=== PATIENT | female | born 1960 | race Caucasian/White ===

== ENCOUNTER 2019-08-28 07:42 | Outpatient (CLI) | payer OTHER, SELFPAY ==
--- NOTE | 2019-08-28 08:18 | XR_ITS ---
WS: [id number] Bone mineral density performed on a [employer], 08/28/2019 Clinical data: Status, asymptomatic POSTMENOPAUSAL Findings: The first 4 lumbar vertebral bodies demonstrated the bone mineral density of 1.204 g/cm2 for a young adult T score of 0.2. Measurement of the left hip reveals a bone mineral density of 1.117 g/cm2 with a young adult T score of 0.9. Measurement of the right hip reveals the bone mineral density of 1.111 g/cm2 for young adult T score of 0.8. XR/XR DEXA axial skeleton* [id number] Impression: Normal bone mineral density of the lumbar spine and both hips.
== END 2019-08-28 07:43 | disposition home or self-care (01) ==
PROVIDERS: Family Provider Internal Medicine; PCP Internal Medicine; Visit Provider Internal Medicine
DX: Z78.0 Asymptomatic menopausal state (principal)
CPT/HCPCS: 77080

== ENCOUNTER 2019-11-04 01:35 | Emergency (ER) | payer OTHER, SELFPAY ==
[2019-11-04 01:52] VITALS: BP 130/88; PULSE 75; RESP 18; TEMP 36.6; O2SAT 97; BMI 38.7
[2019-11-04 01:54] VITALS: BP 135/95; PULSE 79; RESP 16; O2SAT 96
--- NOTE | 2019-11-04 02:06 | W.ED.EAR ---
HPI - Ear Problem General: Chief complaint: Ear Stated complaint: foreign obj left ear Time Seen by Provider: 11/04/19 01:50 History of Present Illness: HPI Narrative: Patient had a bug fly into her left ear this evening. She try to get it out with tweezers and doused with alcohol was unable to retrieve it Complaint: foreign body Location: left ear Duration: constant Severity: mild Relieving factors: nothing Associated symptoms: Denies fever(s) or headache(s) Review of Systems Const: Denies: fever(s), chills or body aches Eyes: Denies: change in vision or blurry vision ENMT: Reports: other (Bug flew into the left ear); Denies: throat pain or nasal congestion Card: Reports: other (History of high blood pressure); Denies: chest pain or dyspnea on exertion Resp: Denies: dyspnea, productive cough or non-productive cough GI: Denies: abdominal pain, nausea or vomiting Musc: Denies: extremity pain Skin/Breast: Denies: rash Neuro: Denies: headache(s) Psych: Denies: anxiety or depression Jed/Lymph: Denies: easy bruising PFSH ED PFSH: Social History Smoking and tobacco status: never smoked Physical Exam Const: COMMON NORMALS: no acute distress HENMT: EXTERNAL AUDITORY CANAL: other (Small bug is present in the left ear canal next to the eardrum I flushed out with 30 cc of saline and got the bug out and tacked) Procedures FB Removal Ear Location: ear canal (L) Foreign Body Suspected: insect TM intact pre-procedure: yes If Insect Suspected: ear canal instilled with other (Saline) Foreign Body Removed: yes Foreign Body Removal Technique: irrigation Tympanic Membrane Intact Post Procedure: Yes Patient Tolerated Procedure: well Complications: none Course Vital Signs: Vital signs: Vital Signs Temperature 97.8 F 11/04/19 01:52 Pulse Rate 75 11/04/19 01:52 Respiratory Rate 18 11/04/19 01:52 Blood Pressure 130/88 11/04/19 01:52 Pulse Oximetry 97 11/04/19 01:52 Discharge Plan Discharge Patient Disposition: Home, Self-Care Clinical Impression: Foreign body in left ear Qualifiers: Encounter type: initial encounter Qualified Code(s): T16.2XXA - Foreign body in left ear, initial encounter Condition: Stable Prescriptions: No Action Wellbutrin SR 150 mg tablet sustained-release 12 hr 150 mg PO DAILY RF: 0 Discharge Orders: Discharge Order (Routine); Ordered 11/04/19 Ordered By: Sarthak Casiano Referrals: Mackenzie Davis MD [Primary Care Provider] - Discharge Diet: Usual diet Discharge Activity: Resume usual activity Patient Instructions: Ear Foreign Body (ED) Activity Restrictions/Additional Instructions: Follow-up as needed Coding Level of Care Code ED Biomass Technician for Rl Lema
== END 2019-11-04 02:10 | disposition home or self-care (01) ==
PROVIDERS: Emergency Provider Nurse Practitioner Family; PCP Internal Medicine
DX: T16.2XXA Foreign body in left ear, initial encounter (principal); X58.XXXA Exposure to other specified factors, initial encounter
CPT/HCPCS: 12345; 99281; 99282

== ENCOUNTER 2020-04-16 11:26 | Emergency (ER) | payer OTHER, SELFPAY ==
[2020-04-16 11:40] VITALS: BP 139/87; PULSE 95; RESP 24; TEMP 37.1; O2SAT 93; BMI 39.8
[2020-04-16 11:58] VITALS: O2SAT 96
--- NOTE | 2020-04-16 11:58 | PC.NURSE ---
Pt oxygen dropped to 89% on room air, placed on 2LNC with improvement to 96%
--- NOTE | 2020-04-16 12:45 | XR_ITS ---
WS: [id number] XR chest 1V portable [id number] REASON FOR EXAM: covid FINDINGS: Ill-defined patchy infiltrative changes are seen in both lower lungs. There is no previous examinatio n to compare with to determine chronicity. There is mild tortuosity of the thoracic aorta. The heart size is normal. No significant abnormality of the bony thorax. XR/XR chest 1V portable [id number] IMPRESSION: Nonspecific changes in the lung bases of unknown chronicity. Findings are will tible with an acute pneumonitis.
[2020-04-16 12:55] VITALS: BP 129/100; PULSE 91; RESP 20; O2SAT 97
--- NOTE | 2020-04-16 12:56 | PC.NURSE ---
Rounded on pt after pt pressed alarm samuel. Pt reports not feeling well all of a sudden. Pt is flushed and has c/o epigastric pain to her abdomen. Charge nurse and Dr Soto made aware. Pt updated we are attempting to empty a room for her.
--- NOTE | 2020-04-16 13:34 | ED_ITS ---
HPI - COVID General: Chief Complaint: COVID symptoms Stated Complaint: COVID +/ EXPERIENCING ALL SYMPTOMS Time Seen by Provider: 04/16/20 13:14 Triage information: Has fever, cough or shortness of breath . Exposure to COVID + person last 14 days History of Present Illness: HPI Narrative: This patient is a 60-year-old female who comes in today with symptoms of Covid. She is on day 8 of symptoms. She had a positive test on last . She believes she was exposed to the prior weekend at a family get together. She is overall healthy. She is obese with a BMI of 40. She has been followed by her PCP, Dr. Lewis. She had put her on dexamethasone, Symbicort, Pepcid. She has been taking ibuprofen for fever. For the past several days she has been increasingly short of breath. She has a pulse oximeter at home and her pulse ox last night got down into the low 80s. This morning it was still in that range. When she came into triage her sat initially resting was about 92 but dropped into the mid 80s. MD complaint: known COVID positive Prior covid testing: yes, results known Prior testing date: 04/08/20 COVID 19 common symptoms: positive fever(s), chills, cough, non-productive cough, dyspnea, fatigue, body aches, headache(s), loss of sense of smell and/or taste, throat pain, nasal congestion and nausea COVID 19 other sytmptoms: positive chest pain (Epigastric) Onset (ago): day(s) (8) Severity: moderate Pertinent comorbid conditions: obesity Treatment prior to arrival: ibuprofen COVID Results: No Data to Display Review of Systems General: Reports: 10 or more systems reviewed and unremarkable except in HPI and below Const: Reports: fever(s), chills, body aches and fatigue Eyes: Denies: change in vision ENMT: Reports: throat pain and nasal congestion Card: Reports: chest pain (Epigastric) Resp: Reports: dyspnea and non-productive cough GI: Reports: nausea : Denies: flank pain or difficulty voiding Musc: Denies: neck pain or back pain Skin/Breast: Denies: rash Neuro: Reports: headache(s) Jed/Lymph: Denies: easy bruising or easy bleeding PFS ED PFSH: Social History Smoking and tobacco status: never smoked Physical Exam Const: COMMON NORMALS: no acute distress, patient oriented x3, no limitations and alert GENERAL APPEARANCE: cooperative and comfortable HENMT: HEAD & SCALP: normal to inspection FACE & SINUS: normal facial exam Eye: GENERAL EYE: appearance normal, both eyes and all related structures Neck/C-Spine: COMMON NORMALS: supple, no meningeal signs and no JVD Chest: COMMONS NORMALS: normal inspection of the chest Resp: EFFORT & INSPECTION: Yes tachypneic and Yes labored AUSCULTATION: crackles Cardio: COMMON NORMALS: no JVD, regular rate, regular rhythm and No murmurs present (Cardio) RATE: regular rate RHYTHM: regular rhythm GI: COMMON NORMALS: Normal to inspection, nondistended, normoactive bowel sounds present, Soft to palpation and non-tender INSPECTION: Yes normal to inspection AUSCULTATION: Yes normoactive bowel sounds PALPATION: Yes Soft to palpation Back/Pelvis: COMMON NORMALS: thoracic and lumbar spine normal to inspection Extremity: COMMON NORMALS: normal to inspection Neuro: COMMON NORMALS: patient oriented x3, moves all extremities, no focal motor deficits and no sensory deficits noted SENSORIUM/ORIENTATION: Yes alert MENINGEAL SIGNS: Yes no meningeal signs Psych: COMMON NORMALS: mental status grossly normal, cooperative and normal affect Skin: COMMON NORMALS: no rashes or lesions noted and turgor normal GENERAL SKIN EXAM: no rashes or lesions noted and turgor normal Course ED course: This patient is already being managed well as an outpatient for her Covid. She presented today with some concerns about low oxygen sats. On her work-up she is requiring oxygen but otherwise looks pretty well. I will have her continue the medications she was prescribed by her PCP and also sent her home on oxygen. Vital Signs: Vital signs: Vital Signs Temperature 98.7 F 04/16/20 11:40 Pulse Rate 82 04/16/20 18:18 Respiratory Rate 18 04/16/20 18:18 Blood Pressure 105/68 04/16/20 18:18 Pulse Oximetry 98 04/16/20 18:18 MDM - COVID Lab Data Result diagrams: 04/16/20 15:34 04/16/20 15:34 Labs: Lab Results 1104/16/20 04/16/20 Range/Units 15:34 15:34 15:34 WBC 7.9 (4.0-10.0) 10^3/uL RBC 5.20 (4.1-5.3) 10^6/uL Hgb 14.8 (11.5-15.3) g/dL Hct 45.3 (37.0-47.0) % MCV 87.1 (81-99) fL MCH 28.5 (28.0-34.0) pg MCHC 32.7 (30.0-36.0) g/dL RDW 12.1 (12.1-15.1) % Plt Count 259 (130-400) 10^3/cmm MPV 11.0 H (7.4-10.4) fL Neut % (Auto) 82.4 % Lymph % (Auto) 9.6 % [place] % (Auto) 7.4 % Eos % (Auto) 0.0 % Baso % (Auto) 0.1 % Neut # (Auto) 6.54 (1.8-7.7) 10^3/uL Lymph # (Auto) 0.8 (0.8-4.8) 10^3/uL [place] # (Auto) 0.6 (0.2-0.9) 10^3/uL Eos # (Auto) 0.0 (0.0-0.8) 10^3/uL Baso # (Auto) 0.0 (0.0-0.1) 10^3/uL Nucleated RBC % (auto) 0 % Nucleated RBCs # 0.0 /100WBC Fibrinogen Cancelled D-Dimer Cancelled Sodium 143 (136-145) mmol/L Potassium 4.1 (3.5-5.1) mmol/L Chloride 104 (98-107) mmol/L Carbon Dioxide 26 (22-29) mmol/L Anion Gap 17.1 (5-19) BUN 13 (6-20) mg/dL Creatinine 0.7 (0.5-0.9) mg/dL GFR Calculation 85.9 L (90-130) mL/min Glucose 130 H (65-115) mg/dL Calculated Osmolality 298 H (285-295) mOsm/kg Lactic Acid (0.5-2.2) mmol/L Calcium 8.9 (8.5-10.5) mg/dL Ferritin 2318 H (15-150) ng/mL Total Bilirubin 0.2 (0.15-1.2) mg/dL AST 91 H (0-32) U/L ALT 125 H (0-33) U/L Alkaline Phosphatase 190 H (35-105) IU/L C-Reactive Protein 51.1 H (0.0-4.9) mg/L NT-Pro-B Natriuret Pep 147 H (0-125) pg/mL Total Protein 7.1 (6.6-8.7) g/dL Albumin 3.7 (3.5-5.2) g/dL Globulin 3.4 (1.3-4.6) g/dL Procalcitonin 0.13 (0-0.5) ng/mL 04/16/20 Range/Units 15:34 WBC (4.0-10.0) 10^3/uL RBC (4.1-5.3) 10^6/uL Hgb (11.5-15.3) g/dL Hct (37.0-47.0) % MCV (81-99) fL MCH (28.0-34.0) pg MCHC (30.0-36.0) g/dL RDW (12.1-15.1) % Plt Count (130-400) 10^3/cmm MPV (7.4-10.4) fL Neut % (Auto) % Lymph % (Auto) % [place] % (Auto) % Eos % (Auto) % Baso % (Auto) % Neut # (Auto) (1.8-7.7) 10^3/uL Lymph # (Auto) (0.8-4.8) 10^3/uL [place] # (Auto) (0.2-0.9) 10^3/uL Eos # (Auto) (0.0-0.8) 10^3/uL Baso # (Auto) (0.0-0.1) 10^3/uL Nucleated RBC % (auto) % Nucleated RBCs # /100WBC Fibrinogen D-Dimer Sodium (136-145) mmol/L Potassium (3.5-5.1) mmol/L Chloride (98-107) mmol/L Carbon Dioxide (22-29) mmol/L Anion Gap (5-19) BUN (6-20) mg/dL Creatinine (0.5-0.9) mg/dL GFR Calculation (90-130) mL/min Glucose (65-115) mg/dL Calculated Osmolality (285-295) mOsm/kg Lactic Acid 1.2 (0.5-2.2) mmol/L Calcium (8.5-10.5) mg/dL Ferritin (15-150) ng/mL Total Bilirubin (0.15-1.2) mg/dL AST (0-32) U/L ALT (0-33) U/L Alkaline Phosphatase (35-105) IU/L C-Reactive Protein (0.0-4.9) mg/L NT-Pro-B Natriuret Pep (0-125) pg/mL Total Protein (6.6-8.7) g/dL Albumin (3.5-5.2) g/dL Globulin (1.3-4.6) g/dL Procalcitonin (0-0.5) ng/mL COVID Results: No Data to Display Discharge Plan Discharge Patient Disposition: Home Clinical Impression: Pneumonia due to 2019 novel coronavirus Condition: Stable Prescriptions: No Action bupropion HCl 150 mg tablet sustained-release 12 hr 150 mg PO DAILY RF: 0 Wal-Zyr (cetirizine) 10 mg Tablet 10 mg PO DAILY RF: 0 ondansetron HCl 4 mg tablet 4 mg PO TID PRN (Reason: Nausea And Vomiting) RF: 0 dexamethasone 6 mg tablet 6 mg PO DAILY RF: 0 Tylenol Extra Strength 500 mg Tablet 1,000 mg PO PRN RF: 0 Pepcid 20 mg Tablet 20 mg PO DAILY RF: 0 ibuprofen 200 mg Tablet 200 - 400 mg PO PRN RF: 0 diclofenac sodium 75 mg tablet,delayed release (DR/EC) 75 mg PO BID PRN (Reason: unknown) RF: 0 fluticasone propionate 50 mcg/actuation spray,suspension 2 spray INTRANASAL BID PRN (Reason: unknown) RF: 0 Symbicort 80-4.5 mcg/actuation HFA aerosol inhaler 1 puff INHALATION BID RF: 0 Vitamin D3 2 cap PO DAILY RF: 0 zinc 2 cap PO DAILY RF: 0 Discharge Orders: Discharge Order (Routine); Ordered 04/16/20 Ordered By: Tasha Soto Other Ambulatory Orders: DME: Oxygen (Order) Location: None Selected Ordered By: Tasha Soto Referrals: Mackenzie Davis MD [Primary Care Provider] - Discharge Diet: Usual diet Discharge Activity: Resume usual activity Patient Instructions: Viral Pneumonia (ED) Activity Restrictions/Additional Instructions: Use the oxygen at home at the lowest level that will keep your oxygen saturation around 93 to 94%. If you get up to 6 L and you are not able to keep the oxygen over 90 then you must return to the ER. Continue the medications that Dr. Davis prescribed for you. Return to the ER as well if any other new or worse symptoms. Coding Level of Care Code ED Cook Apprentice Pastry for Adriang Fwd Exam Comprehensive
[2020-04-16 14:01] VITALS: O2SAT 95
[2020-04-16 15:59] LABS: Lactic Sepsis W/Reflex 1.2 mmol/L (0.5-2.2)
[2020-04-16 16:03] LABS: Basophils % 0.1 %; Hematocrit 45.3 % (37.0-47.0); Hemoglobin 14.8 g/dL (11.5-15.3); Lymphocytes # 0.8 10^3/uL (0.8-4.8); Lymphocytes % 9.6 %; Mean Corpuscular HGB Conc 32.7 g/dL (30.0-36.0); Mean Corpuscular Hemoglobin 28.5 pg (28.0-34.0); Mean Corpuscular Volume 87.1 fL (81-99); Monocytes # 0.6 10^3/uL (0.2-0.9); Monocytes % 7.4 %; Neutrophils # 6.54 10^3/uL (1.8-7.7); Neutrophils % 82.4 %; Nucleated Red Blood Cells % 0 %; Platelet Count 259 10^3/cmm (130-400); Red Cell Distribution Width 12.1 % (12.1-15.1); White Blood Count 7.9 10^3/uL (4.0-10.0)
[2020-04-16 16:10] LABS: NT Pro B Type Natriuretic Pept 147 pg/mL (0-125); Procalcitonin 0.13 ng/mL (0-0.5)
[2020-04-16 16:30] LABS: Alanine Aminotransferase 125 U/L (0-33); Albumin Level 3.7 g/dL (3.5-5.2); Alkaline Phosphatase 190 IU/L (35-105); Blood Urea Nitrogen 13 mg/dL (6-20); C Reactive Protein 51.1 mg/L (0.0-4.9); Calcium 8.9 mg/dL (8.5-10.5); Carbon Dioxide 26 mmol/L (22-29); Chloride 104 mmol/L (98-107); Globulin 3.4 g/dL (1.3-4.6); Glomerular Filtration Rate 85.9 mL/min (90-130); Glucose 130 mg/dL (65-115); Osmolality Calculated 298 mOsm/kg (285-295); Sodium 143 mmol/L (136-145); Total Bilirubin 0.2 mg/dL (0.15-1.2); Total Protein 7.1 g/dL (6.6-8.7)
[2020-04-16 16:35] LABS: Anion Gap 17.1 (5-19); Aspartate Amino Transferase 91 U/L (0-32); Potassium 4.1 mmol/L (3.5-5.1)
[2020-04-16 16:44] LABS: Ferritin 2318 ng/mL (15-150)
[2020-04-16 18:18] VITALS: BP 105/68; PULSE 82; RESP 18; O2SAT 98
--- NOTE | 2020-04-21 15:12 | DCPLANNER ---
late entry - case worker was asked to arrange home O2 for patient. net development manager spoke with patient she stated that she would like to use [facility] for her oxygen. net development manager filled out Patient Choice letter, case worker signed Patient Choice letter due to patient having COVID. net development manager faxed order and prescription to [facility] for them to bring the oxygen to the ED for patient.
== END 2020-04-16 18:20 | disposition home or self-care (01) ==
PROVIDERS: Emergency Provider Emergency Medicine; PCP Internal Medicine
DX: U07.1 COVID-19 (principal); J12.89 Other viral pneumonia
CPT/HCPCS: 12345; 71045; 80053; 82728; 83605; 83880; 84145; 85025; 86140; 99282; 99283

== ENCOUNTER 2022-01-10 13:00 | Outpatient (CLI) | payer OTHER, SELFPAY | END 2022-01-10 13:01 | disposition home or self-care (01) | LOC: SLEEP 01-11 13:36 | PROVIDERS: PCP Internal Medicine; Visit Provider Internal Medicine | DX: G47.10 Hypersomnia, unspecified (principal); G47.33 Obstructive sleep apnea (adult) (pediatric) | CPT/HCPCS: G0399 ==

== ENCOUNTER 2025-03-17 09:48 | Outpatient (CLI) | payer BC, SELFPAY ==
--- NOTE | 2025-03-17 10:00 | USCV_ITS ---
Sisi Candelaria Age: 65 Gender: F : 1960 Exam Date: 03/17/2025 10:15 Ordering Phys: Mackenzie Davis MD Technologist: DAVID [place]am [place] [facility] [place]: stenosis Risk Factors: Previous Vascular Surgery: Right Brachial BP: / Left Brachial BP: / Right Left Velocity (cm/s) Spectral Plaque Velocity (cm/s) Spectral Plaque Syst/Diast Broadening Syst/Diast Broadening 75.30/ 18.40 Prox CCA 84.50 / 21.00 64.40/ 17.80 Mid CCA 68.80 / 20.00 74.20/ 22.00 Distal CCA 80.30 / 25.70 40.40/ 14.70 Prox ICA 80.30 / 20.40 64.90/ 27.50 Mid ICA 56.70 / 24.00 48.90/ 16.20 Distal ICA 47.40 / 18.20 79.90 ECA 142.00 0.90 ICA/CCA 1.00 Antegrade Vertebral Antegrade 31.40/ 11.60 cm/s 26.70/ 8.00 cm/s Tri Subclavian Tri 69.90 82.80 FINDINGS Tortuous vessels CONCLUSIONS Right ICA stenosis <50%. Mild atheromatous plaque right carotid bulb/ICA. Left ICA stenosis <50%. Mild atheromatous plaque left carotid bulb/ICA. Intimal thickening in the common carotid arteries and internal carotid arteries bilaterally. Normal antegrade Doppler flow noted in the right vertebral artery. Normal antegrade Doppler flow noted in the left vertebral artery. Choco Lester MD (Electronically Signed) Final Date: 17 March 2025 12:10 S
== END 2025-03-17 09:49 | disposition home or self-care (01) ==
LOC: RAD 09:53
PROVIDERS: PCP Internal Medicine; Visit Provider Internal Medicine
DX: I65.23 Occlusion and stenosis of bilateral carotid arteries (principal)
CPT/HCPCS: 93880